=== PATIENT | male | born 2000 | race Two or more races ===

== ENCOUNTER → 2023-10-18 | Outpatient (CLI) | payer OTHER ==
--- NOTE | 2023-10-29 12:21 | MR ---
EXAMINATION TYPE: MR wrist LT wo con DATE OF EXAM: 10/18/2023 COMPARISON: Radiograph 03/04/2023 HISTORY: 23-year-old male M25.532 Left wrist pain and clicking x7 months TECHNIQUE: Multiplanar, multisequence images of the left wrist were obtained without IV contrast. FINDINGS: There is no acute or healing fracture. No abnormal marrow edema is seen No wrist joint effusion. Old scapholunate and lunotriquetral ligaments appear intact. The TFC appears intact. There is mild soft tissue swelling suggested overlying the ulnar styloid process and some increased s ignal within the substance of the ACL at the level of the ulnar styloid process. Possible partial-thi ckness short segment split of the tendon near, for example, axial series 801 image 20 and axial obliq ue series 701 image 13. Both dorsal extensor and flexor tendons otherwise appear intact. Normal appearance to the median nerve at the distal wrist crease. IMPRESSION: 1. There appears to be some ECU tendinosis and a short segment partial-thickness split of the tendon. Correlate for any associated ulnar-sided wrist pain. 2. No other specific abnormality seen.
== END | disposition home or self-care (01) ==
LOC: RADMRIMAIN 20:00
PROVIDERS: ATTEND Orthopaedic Surgery Hand Surgery
DX: M25.532 Pain in left wrist (principal)

== ENCOUNTER → 2023-12-24 | Outpatient (CLI) | payer OTHER ==
--- NOTE | 2023-12-24 15:54 | NM ---
EXAMINATION TYPE: NM bone SPECT DATE OF EXAM: 12/24/2023 COMPARISON: NONE CLINICAL INDICATION: Male, 23 years old with history of M54.50 LOW BACK PAIN, UNSPECIFIED; TECHNIQUE: After the intravenous administration of 22.6 mCi Tc 99m MDP. Images acquired 5 hours pos t injection. SPECT views of the lumbar are submitted. There is no abnormal uptake within the visualized osseous structures to suggest acute process. IMPRESSION: No acute osseous abnormality.
== END | disposition home or self-care (01) ==
LOC: RADNMMAIN 07:43
PROVIDERS: ATTEND Orthopaedic Surgery Orthopaedic Surgery of the Spine
DX: Q76.0 Spina bifida occulta (principal); M79.10 Myalgia, unspecified site; S39.012A Strain of muscle, fascia and tendon of lower back, initial encounter; X58.XXXA Exposure to other specified factors, initial encounter
CPT/HCPCS: 78803; A9503

== ENCOUNTER → 2024-02-21 | Outpatient (CLI) | payer OTHER ==
--- NOTE | 2024-02-21 15:30 | XR ---
EXAMINATION TYPE: XR Hip Complete LT DATE OF EXAM: 02/21/2024 COMPARISON: NONE HISTORY: 23-year-old male with pain, S73.002A SUBLUXATION OF LT HIP TECHNIQUE: 2 views FINDINGS: The joint space is maintained. However, there is anterior bony excrescence at the femoral h ead neck junction on the frog-leg lateral view. No acute fracture, subluxation or dislocation. IMPRESSION: Osseous excrescence along the anterior femoral head neck junction. Correlate for any symptoms of CAM- type femoral acetabular impingement syndrome.
== END | disposition home or self-care (01) ==
LOC: RADXRMAIN 14:21
PROVIDERS: ATTEND Physical Medicine & Rehabilitation
DX: S73.002A Unspecified subluxation of left hip, initial encounter (principal); X58.XXXA Exposure to other specified factors, initial encounter
CPT/HCPCS: 73502